=== PATIENT | female | born 1990 | race Caucasian/White ===

== ENCOUNTER 2024-01-03 15:39 | Emergency (ER) | payer BC ==
[~2024-01-03] VITALS: Ht 157.5 cm; Wt 87.5 kg
[2024-01-03 16:03] VITALS: TEMP 98.3; O2SAT 99
[2024-01-03 16:54] LABS: CLARITY URINE CLEAR (CLEAR); COLOR URINE DARK YELLOW (YELLOW); GLUCOSE URINE NEGATIVE (NEGATIVE); KETONES URINE NEGATIVE (NEGATIVE); LEUKOCYTE ESTERASE URINE 2+ (NEGATIVE); NITRITE URINE NEGATIVE (NEGATIVE); OCCULT BLOOD URINE NEGATIVE (NEGATIVE); PH URINE 5.5 (4.5-8.0); PROTEIN URINE 2+ (NEGATIVE); SPECIFIC GRAVITY URINE 1.023 (1.005-1.030); UROBILINOGEN URINE 0.2 E.U./dL (0.2-1.0)
[2024-01-03 17:15] LABS: RBC URINE 0-2 /hpf (0-2); SQUAMOUS EPITHELIAL CELL URINE FEW /lpf (RARE/1+)
[2024-01-03 17:16] LABS: BACTERIA URINE 3+
[2024-01-03] MEDS ORDERED: NITR100C MT (17:25)
[2024-01-03 17:30] VITALS: BP 110/56; PULSE 80; RESP 17; O2SAT 100
== END 2024-01-03 17:43 | disposition home or self-care (01) ==
LOC: ER 15:39
DX: N39.0 Urinary tract infection, site not specified (principal); F41.9 Anxiety disorder, unspecified; E11.9 Type 2 diabetes mellitus without complications
CPT/HCPCS: 81003; 81025; 87077; 87186; 99283

== ENCOUNTER 2024-05-22 15:18 | Emergency (ER) | payer BC ==
[~2024-05-22] VITALS: Ht 167.6 cm; Wt 91.0 kg
[~2024-05-22 15:18] MED LIST: NITR100C MT
[2024-05-22 15:24] VITALS: O2SAT 97
[2024-05-22] MEDS: ACETAMINOPHEN 500MG TABLET PO ONE (17:38)
[2024-05-22] MEDS: KETOROLAC 30MG/ML VIAL IM ONE (17:38)
[2024-05-22 17:42] VITALS: TEMP 36.9
[2024-05-22] MEDS ORDERED: KETO10TA2 MT (18:08)
[2024-05-22 19:18] VITALS: BP 90/63; PULSE 85; RESP 16; O2SAT 98
== END 2024-05-22 19:19 | disposition home or self-care (01) ==
LOC: ER 15:18
DX: M25.512 Pain in left shoulder (principal); F41.9 Anxiety disorder, unspecified; F19.90 Other psychoactive substance use, unspecified, uncomplicated; Z98.890 Other specified postprocedural states
CPT/HCPCS: 99283; 96372; J1885